=== PATIENT | female | born 1995 | race American Indian/Alaskan Native ===

== ENCOUNTER 2016-07-11 06:36 | Outpatient (CLI) | payer MEDICAID ==
[2016-07-11 06:52] VITALS: BP 118/79
--- NOTE | 2016-07-11 08:27 | Ultrasound Report ---
ULTRASOUND BIOPHYSICAL PROFILE: History: No care Technique: Transabdominal ultrasound with Doppler interrogation. 2 - breathing movements 2 - movements 2 - posture and tone 2 - Qualitative amniotic fluid volume 8 - TOTAL SCORE OF POSSIBLE 8 Heart Rate (bpm) 140
== END 2016-07-11 08:58 | disposition home or self-care (01) ==
LOC: TRG 06:36
PROVIDERS: ATTEND Obstetrics & Gynecology
DX: O47.1 False labor at or after 37 completed weeks of gestation (principal); Z3A.39 39 weeks gestation of pregnancy
CPT/HCPCS: 59025; 76819

== ENCOUNTER 2016-07-17 13:38 | Outpatient (CLI) | payer MEDICAID ==
[2016-07-17 16:59] VITALS: BP 131/77
[2016-07-17] MEDS ORDERED: VISTARIL PO ONE (17:09)
== END 2016-07-17 17:35 | disposition home or self-care (01) ==
LOC: TRG 13:38
PROVIDERS: ATTEND Obstetrics & Gynecology
DX: O48.0 Post-term pregnancy (principal); Z3A.40 40 weeks gestation of pregnancy
CPT/HCPCS: 59025; Q0177

== ENCOUNTER 2016-07-18 04:03 | Outpatient (CLI) | payer MEDICAID ==
[2016-07-21 03:04] VITALS: BP 137/86
== END 2016-07-18 05:03 | disposition home or self-care (01) ==
LOC: TRG 04:03
PROVIDERS: ATTEND Obstetrics & Gynecology
DX: O47.1 False labor at or after 37 completed weeks of gestation (principal); Z3A.40 40 weeks gestation of pregnancy
CPT/HCPCS: 59025

== ENCOUNTER 2016-07-19 14:16 | Outpatient (CLI) | payer MEDICAID ==
[2016-07-20 17:33] VITALS: BP 129/83
== END 2016-07-19 16:36 | disposition home or self-care (01) ==
LOC: TRG 14:16
PROVIDERS: ATTEND Obstetrics & Gynecology
DX: O47.1 False labor at or after 37 completed weeks of gestation (principal); Z3A.40 40 weeks gestation of pregnancy
CPT/HCPCS: 59025